=== PATIENT | male | born 1970 ===

== ENCOUNTER 2022-03-30 12:06 | Outpatient (CLI) | payer BC, SELFPAY ==
--- NOTE | 2022-03-30 12:10 | MR_ITS ---
[address] [address] Phone:?[phone] Fax:?[phone] Referring Physician Information: Jose Miguel Younger M.D. [address] [facility] [address] Phone:?[phone] Fax:?[phone] Patient:?Perico Egan D.O.B:?1970 Sex:?Male Phone:?[phone] [facility] MRN:?[id number] Exam Date:?03/30/2022 ? EXAM: MRI of the RIGHT HIP, without contrast CLINICAL HISTORY: History of right hip pain. Indeterminate bone lesion within the right ischium seen on previous MRI 11/25/2020. Radiodense bone lesion on x- ray. COMPARISONS: MRI 11/25/2020. Plain radiographs 04/29/2020. TECHNICAL: MR sequences of the right hip: Axials: PD FS Axial oblique: PD Coronals: PD, T2 Coronal pelvis: T1 and STIR Sagittals: PD and T2 CONTRAST: None SEDATION: None FINDINGS: Pelvis osseous structures: Sacrum: No fracture or destructive osseous lesion is seen of the imaged portions of the sacrum. Sacroiliac joints: No convincing evidence of sacroiliitis of the imaged portions of the sacroiliac joints. Pubic rami: Unremarkable. Symphysis pubis: There is no evidence of acute osteitis pubis. A 1.2 cm in craniocaudad dimension by 1.0 cm in AP dimension by 1.0 cm in transverse dimension STIR hyperintense and T1 hypointense lesion within the right is nonspecific and unchanged compared to previous MRI 11/25/2020. Labrum: Extensive fraying/ill-defined tearing of the right hip labrum from the 11 o'clock position posterosuperiorly through the 3 o'clock position anteriorly is not significant changed compared to previous MRI 11/25/2020. Hip joint: The presence of contrast reflects intra-articular injection. No discrete high-grade chondral defect or degenerative subchondral cystic change/degenerative subchondral edema-like signal is seen. Proximal femur: No fracture, osseous stress injury, avascular necrosis, or suspicious bone marrow signal abnormality is seen. Acetabulum: No subchondral cysts, periacetabular ossicles or marrow edema. Ligamentum teres: Unremarkable. Myotendinous structures: Gluteus abductors: The gluteus minimus and medius tendons are unremarkable. Rectus abdominis-adductor longus aponeurosis, adductors, and rectus abdominis: Unremarkable. Hamstrings: Unremarkable. Flexors: The iliopsoas and rectus femoris tendons are intact. Quadratus femoris muscle: Unremarkable. Gluteal aponeurotic fascia and IT band: Unremarkable. Pelvic soft tissues: Unremarkable. Degenerative endplate changes at a transitional lumbosacral level are suspected although it must be noted that the lumbosacral spine is not well evaluated by this dedicated MRI of the right hip. IMPRESSION: 1. 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 The lack of significant change for this time period is almost certainly indicative of a benign etiology. No further imaging follow-up of this lesion is recommended. 2. Fraying/ill-defined degenerative tearing of the right hip labrum from 11 o'clock position posterosuperiorly through 3 o'clock position anteriorly, unchanged compared to previous MRI 11/25/2020. No discrete chondral defect or degenerative subchondral cystic change/degenerative subchondral edema-like signal is identified on this nonarthrogram study. 3. Degenerative endplate changes at a transitional lumbosacral level do not appear significantly changed compared to previous MRI 11/25/2020 although it must be noted that the lumbosacral spine is not well evaluated by this dedicated MRI of the right hip. Dedicated MRI of the lumbosacral spine could be obtained for further evaluation if clinically appropriate. 4. No fracture, osseous stress injury, or tendinous pathology of the right hip. 5. There is given history of radiodense bone lesion on x-ray. No radiographs after 04/29/2020 were provided for review. If radiodense lesion was seen on on any previous radiographs, correlation with these radiographs and their reports is needed. If these are provided and made available to me, I will review and provide an additional report in the form of an addendum. RCB Electronically signed on 03/30/2022 11:01:00 PM by Ha Romero M.D.
== END 2022-03-30 12:07 | disposition home or self-care (01) ==
LOC: MRI 12:08
PROVIDERS: PCP Family Medicine; Visit Provider Family Medicine
DX: M25.551 Pain in right hip (principal); M89.9 Disorder of bone, unspecified; S73.101A Unspecified sprain of right hip, initial encounter
CPT/HCPCS: 73721